=== PATIENT | male | born 1990 | race African-American/Black ===

== ENCOUNTER 2018-05-05 03:33 | Emergency (ER) | payer OTHER ==
[~2018-05-05] VITALS: Ht 175.3 cm; Wt 113.4 kg
[2018-05-05] MEDS ORDERED: TYLENOL325 MG PO (03:51)
[2018-05-05] MEDS ORDERED: ROBAXIN 750 MG750 M1 PO (03:51)
[2018-05-05 04:10] VITALS: BP 154/80
== END 2018-05-05 04:10 | disposition home or self-care (01) ==
LOC: ER 03:33
DX: S39.012A Strain of muscle, fascia and tendon of lower back, initial encounter (principal); V43.52XA Car driver injured in collision with other type car in traffic accident, initial encounter; Y93.89 Activity, other specified; Y92.89 Other specified places as the place of occurrence of the external cause; Y99.8 Other external cause status